=== PATIENT | male | born 1975 | race Hispanic/Latino ===

== ENCOUNTER 2018-12-08 11:34 | Outpatient (CLI) | payer BC ==
--- NOTE | 2018-12-08 12:04 | RAD ---
CERVICAL SPINE 4 VIEWS: INDICATION: Cervical pain. FINDINGS: Cervical vertebrae maintain height and alignment. There are mild degenerative changes noted with ant erior osteophytes. The disk spaces are preserved. No evidence of listhesis. IMPRESSION: There are mild degenerative changes of the cervical spine as described. POS: OFF
== END 2018-12-08 11:35 | disposition home or self-care (01) ==
LOC: SCSRAD 11:34
PROVIDERS: ATTEND Family Medicine
DX: M54.2 Cervicalgia (principal); M47.812 Spondylosis without myelopathy or radiculopathy, cervical region
CPT/HCPCS: 72040

== ENCOUNTER 2024-08-11 14:11 | Outpatient (CLI) | payer BC | END 2024-08-11 14:12 | disposition home or self-care (01) | LOC: SCSRAD 14:11 | PROVIDERS: ATTEND Family Medicine | DX: S99.922A Unspecified injury of left foot, initial encounter (principal) ==